=== PATIENT | male | born 1950 | race Caucasian/White ===

== ENCOUNTER 2018-01-17 08:02 | Day surgery (SDC) | payer OTHER ==
--- OUTSIDE RECORDS SUMMARY | 2018-01-17 08:08 | XMS REPORT ---
:1950 Author Organization eClinicalWorks Care Team Providers Name Role Phone Yudi Valdezh Provider Role Unavailable Allergies, Adverse Reactions, Alerts Substance Reaction Event Type N.K.D.A. Info Not Available Non Drug Allergy Problems Problem Type Condition Code Onset Dates Condition Status Assessment Tobacco use disorder F17.200 Active Assessment Hyperlipidemia, mixed E78.2 Active Assessment Family history of colon cancer Z80.0 Active Assessment Screening for colon cancer Z12.11 Active Assessment Colon polyp K63.5 Active Problem Family history of colon cancer Z80.0 Active Problem Hyperlipidemia, mixed E78.2 Active Problem Diabetes type 2, uncontrolled E11.65 Active Assessment Diabetes type 2, uncontrolled E11.65 Active Problem Colon polyp K63.5 Active Problem Tobacco use disorder F17.200 Active Medications Medication Code Code Instructions Start End Status Dosage System Date Date Tradjenta [facility] 46180834409 5 MG Orally Once Active 1 tablet a day Jardiance [facility] 80192549684 25 MG Orally Mar 18, Active 1 tablet Once a day 2018 Metformin HCl [facility] 14894310009 1000 MG Orally Active 1 tablet Once a day with a meal Aspir-81 [facility] 13587144746 81 MG Orally Active 1 tablet Once a day Trulicity [facility] 77081097327 1.5 MG/0.5ML August 21Mar 18, Active as directed Subcutaneous 2017 2018 once a week Lipitor [facility] 40983393766 10 MG Orally Active 1 tablet Once a day Results No Known Results Summary Purpose eClinicalWorks Submission
--- OUTSIDE RECORDS SUMMARY | 2018-01-17 08:08 | XMS REPORT ---
:1950 Author Organization [employer] Care Team Providers Name Role Phone Iker Valdez Provider Role Unavailable Allergies No Known Allergies Problems Problem Type Condition Code Onset Dates Condition Status Assessment Colon polyp K63.5 Active Assessment Family history of colon cancer Z80.0 Active Assessment Tobacco use disorder F17.200 Active Problem Family history of colon cancer Z80.0 Active Problem Hyperlipidemia, mixed E78.2 Active Problem Diabetes type 2, uncontrolled E11.65 Active Assessment Diabetes type 2, uncontrolled E11.65 Active Assessment Hyperlipidemia, mixed E78.2 Active Problem Colon polyp K63.5 Active Problem Tobacco use disorder F17.200 Active Medications Medication Code Code Instructions Start End Status Dosage System Date Date Metformin HCl [facility] 64564265628 1000 MG Orally Active 1 tablet Once a day with a meal Jardiance [facility] 18281715892 25 MG Orally Sept Active 1 tablet Once a day 2017 Aspir-81 [facility] 76865817685 81 MG Orally Active 1 tablet Once a day Trulicity [facility] 70164319975 1.5 MG/0.5ML August 21Nov Active as directed Subcutaneous 2017 06, once a week 2017 Tradjenta [facility] 59221038557 5 MG Orally Once Active 1 tablet a day Tradjenta [place] 72023660762 5 MG Orally Once Active 1 tablet a day Jardiance [facility] 14972852813 25 MG Orally Active 1 tablet Once a day Lipitor [facility] 89803418087 10 MG Orally Active 1 tablet Once a day Results No Known Results Summary Purpose eClinicalWorks Submission
[2018-01-17] MEDS ORDERED: NA CHLORIDE 0.9% 1,000 ML ONE (08:23)
[2018-01-17] MEDS ORDERED: PROPOFOL 200 MG/20 ML VIAL IV ONE (10:31)
[2018-01-17] MEDS ORDERED: LIDOCAINE 1% MPF 5 ML VIAL ONE (10:31)
--- NOTE | 2018-01-17 10:56 | ENDO RPT ---
[address], [address] COLONOSCOPY PROCEDURE REPORT EXAM DATE: 01/17/2018 PATIENT NAME: Sergey Pineda MR #: [id number] BIRTHDATE: 1950 ATTENDING: Hector Griffith DR STATUS: outpatient POOLING OPERATOR: Narinder Salgado and Nadine Cardenas RN INDICATIONS: The patient is a 67 yr old Male here for a colonoscopy due to colon cancer screening and history of polyps PROCEDURE PERFORMED: Colonoscopy with biopsy - cold polypectomy MEDICATIONS: Per Anesthesia. ESTIMATED BLOOD LOSS: None CONSENT: The patient understands the risks and benefits of the procedure and understands that these risks include, but are not limited to: sedation, allergic reaction, infection, perforation and/or bleeding. Alternative means of evaluation and treatment include, among others: physical exam, x-rays, and/or surgical intervention. The patient elects to proceed with this endoscopic procedure. DESCRIPTION OF PROCEDURE: During intra-op preparation period all mechanical medical equipment was checked for proper function. Hand hygiene and appropriate measures for infection prevention was taken. Procedure, possible complications, alternatives including, but not limited to possibility of bleeding, perforation, tear, infection, sepsis, need for surgery, need for blood transfusion, were explained to the patient. After the risks, benefits and alternatives of the procedure were thoroughly explained, Informed consent was verified, confirmed and timeout was successfully executed by the treatment team. The patient was placed in the left lateral position. A digital rectal exam was performed and revealed an enlarged prostate and A digital rectal exam was performed and revealed internal hemorrhoids. After appropriate level of anesthesia, the scope was passed. The [id number] ([id number]) endoscope was introduced through the anus and advanced to the cecum, which was identified by both the appendix and ileocecal valve. The quality of the prep was poor. The instrument was then slowly withdrawn as the colon was fully examined. Scope withdrawal time was 12 minutes. COLON FINDINGS: Three small smooth sessile polyps with friable surfaces were found in the rectosigmoid colon, sigmoid colon, and at the cecum. A polypectomy was performed with cold forceps. The resection was complete, the polyp tissue was completely retrieved and sent to histology. Retroflexed views revealed no abnormalities. The scope was then completely withdrawn from the patient and the procedure terminated. ADVERSE EVENTS: There were no complications. IMPRESSIONS: Three small sessile polyps were found in the left colon, rectosigmoid colon, and sigmoid colon; polypectomy was performed with cold forceps RECOMMENDATIONS: 1. avoid NSAIDS 2. avoid NSAIDS for 2 weeks 3. await biopsy results 4. fiber rich diet 5. follow-up: office 2 week(s) 6. yearly hemoccult starting in 4 years 7. increase dietary water RECALL: Return in 5 year(s) for Colonoscopy, pending biopsy results. Hector Griffith DR eSigned: Hector Griffith DR 01/17/2018 10:55 AM cc: CPT CODES: ICD9 CODES: PATIENT NAME: PinedaSergey MR#: [id number]
== END 2018-01-17 11:32 | disposition home or self-care (01) ==
LOC: OR 08:02
PROVIDERS: ATTEND Surgery
PROC: 0DBN8ZX Excision of Sigmoid Colon, Via Natural or Artificial Opening Endoscopic, Diagnostic (ICD-10-PCS; 2018-01-17)
PROC: 0DBG8ZX Excision of Left Large Intestine, Via Natural or Artificial Opening Endoscopic, Diagnostic (ICD-10-PCS; 2018-01-17)
PROC: 0DBH8ZX Excision of Cecum, Via Natural or Artificial Opening Endoscopic, Diagnostic (ICD-10-PCS; principal; 2018-01-17 10:30)
DX: D12.4 Benign neoplasm of descending colon (principal); D12.0 Benign neoplasm of cecum; D12.7 Benign neoplasm of rectosigmoid junction; K64.8 Other hemorrhoids; E11.9 Type 2 diabetes mellitus without complications; E78.2 Mixed hyperlipidemia; Z72.0 Tobacco use; Z86.010 Personal history of colon polyps; Z79.82 Long term (current) use of aspirin; Z80.0 Family history of malignant neoplasm of digestive organs
CPT/HCPCS: 45380; 82962; 88305; J7030; J2704